=== PATIENT | female | born 1960 | race Caucasian/White ===

== ENCOUNTER → 2017-05-25 15:00 | Outpatient (CLI) | payer BC ==
[2009-04-25 16:31] VITALS: BMI 22.4
== END | disposition home or self-care (01) ==
LOC: D.MRI 15:00
DX: G43.909 Migraine, unspecified, not intractable, without status migrainosus (principal)

== ENCOUNTER → 2019-10-21 20:53 | Outpatient (CLI) | payer BC ==
[2009-04-25 16:31] VITALS: BMI 22.4
[~2019-10-21 20:53] MED LIST: CYMBALTA30 MG PO; MACROBID100 MG PO; MYRBETRIQ25 MG PO; TEMAZEPAM30 MG PO; ULTRAM50 MG PO; UROGESIC BLUE PO
== END | disposition home or self-care (01) ==
LOC: D.LABREF 20:53
PROVIDERS: ATTEND Internal Medicine
DX: R31.9 Hematuria, unspecified (principal)

== ENCOUNTER 2019-10-24 07:20 | Day surgery (SDC) | payer BC ==
[2019-10-23 15:55] LABS: BASOPHILS 0.2 % (0-2); EOSINOPHILS 7.3 % (0-7); HEMATOCRIT 41.7 % (36.0-48.0); HEMOGLOBIN 13.6 g/dL (12-16); IMMATURE GRANULOCYTES 0.2 % (0-5); LYMPHOCYTES 34.7 % (15-50); MCH 30.8 pg (26.0-34.0); MCHC 32.6 g/dL (31.0-37.0); MCV 94.6 fL (80.0-100.0); MEAN PLATELET VOLUME 10.1 fL (7.4-10.4); MONOCYTES 5.6 % (2-11); PLATELET COUNT 257 10x3/uL (130-400); RBC 4.41 10x6/uL (4.00-5.40); RDW 12.7 % (11.5-14.5); WBC 8.8 10x3/uL (4.8-10.8)
[2019-10-23 16:02] LABS: CALC OSMOLALITY 281 mosm/kg (275-300); CALCIUM 9.2 mg/dL (8.5-10.1); CARBON DIOXIDE 28.9 mmol/L (21.0-32.0); CHLORIDE - SERUM 102 mmol/L (98-107); CREATININE - SERUM 0.8 mg/dL (0.6-1.3); GLUCOSE 93 mg/dL (74-106); POTASSIUM - SERUM 3.7 mmol/L (3.5-5.1); SODIUM 141 mmol/L (136-145); UREA NITROGEN 15 mg/dL (7-18); eGFR NON AFRICAN AMERICAN 78 mL/min (90-120)
[2019-10-23 16:08] LABS: APTT 27.8 SECONDS (22.8-39.4); INR 0.89 (0.85-1.17)
[~2019-10-24] VITALS: Ht 170.2 cm; Wt 79.8 kg
[2019-10-24 08:17] VITALS: BP 114/70; Ht 170.2 cm; Wt 79.8 kg
--- NOTE | 2019-10-24 11:12 | NUR ---
1110 IV REMOVED AND PT VOIDING AGAIN. SCANT AMT OF BLOOD IN URINE
--- NOTE | 2019-10-25 12:55 | OP ---
PATIENT NAME: ANDREW MATAMOROS MEDICAL RECORD: [id number] :60 LOCATION:D.OPS ADMISSION DATE: SURGEON: JT DUENAS MD DATE OF OPERATION: 10/24/2019 SURGEON: Jt Duenas MD ANESTHESIA: TIVA by Keny Choi CRNA. DIAGNOSIS: Interstitial cystitis. PROCEDURE: Cystoscopy, hydrodilation of the bladder, and Rimso instillation. BLOOD LOSS: None. FINDINGS: Single ureteral orifices bilaterally. Diffusely inflamed bladder. No bladder tumors. CLINICAL HISTORY: This is a 58-year-old female with a history of interstitial cystitis. She has another flareup right now. Urine cultures have shown no growth. She comes for treatment of the interstitial cystitis. 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 DESCRIPTION OF PROCEDURE: The patient was given IV sedation. She was placed into lithotomy position and prepped and draped. A 17-Comoran cystoscope with 30-degree lens was used for visualization. Findings are as outlined above. The bladder was hydrodistended to about 600 mL for 2 minutes and then the bladder was emptied. The scope was then removed. A 16-Comoran Sotelo catheter was used to instill 50 mL of Rimso solution into the bladder. The catheter was then removed, leaving the solution in the bladder. The patient will hold the solution in the bladder for about 15 minutes and then void it out. I will see her in followup in 2-3 weeks' time. TRANSINT:[id number] Voice Confirmation ID: [id number] DOCUMENT ID: [id number] JT DUENAS MD at 1255 CC: [id number] DICTATION DATE: 10/24/19 111 [employer] C[employer]TER: 10/24/19 2215 [facility] 10/24/19 [place] [address]
== END 2019-10-24 11:25 | disposition home or self-care (01) ==
LOC: D.OPS 07:20 → D.PAN 09:30 → D.OPS 09:30
PROVIDERS: Anesthesiology; ATTEND Urology
DX: N30.10 Interstitial cystitis (chronic) without hematuria (principal); R31.21 Asymptomatic microscopic hematuria; N39.3 Stress incontinence (female) (male)

== ENCOUNTER → 2019-11-08 08:32 | Outpatient (CLI) | payer BC ==
[2019-10-24 08:17] VITALS: BMI 27.6
== END | disposition home or self-care (01) ==
LOC: D.CT 11-07 09:30
PROVIDERS: ATTEND Urology
DX: R31.21 Asymptomatic microscopic hematuria (principal)

== ENCOUNTER → 2019-12-18 20:03 | Outpatient (CLI) | payer BC ==
[2019-10-24 08:17] VITALS: BMI 27.6
== END | disposition home or self-care (01) ==
LOC: D.LABREF 20:03
PROVIDERS: ATTEND Internal Medicine
DX: N39.0 Urinary tract infection, site not specified (principal)